=== PATIENT | female | born 1945 | race Caucasian/White ===

== ENCOUNTER 2017-09-15 11:02 | Emergency (ER) | payer MEDICARE, OTHER ==
[~2017-09-15] VITALS: Ht 157.5 cm; Wt 81.3 kg
[~2017-09-15 11:02] MED LIST: ASPI81TA81; BIOT1CAP2 PO; DICL75TA PO; ESTR0.5T PO; LEVO125T4 PO; SIMV40TA PO
[2017-09-15 11:05] VITALS: BP 169/79; PULSE 78; RESP 14; TEMP 97.8; O2SAT 98
--- NOTE | 2017-09-15 11:28 | PD ---
HPI Chief Complaint: Skin Problem Time Seen by Provider: 11:17 Travel History International Travel<30 days: No Contact w/Intl Traveler<30days: No Traveled to known affect area: No History of Present Illness HPI 71-year-old female presents to the emergency department for evaluation of cellulitis to her lower abdomen/groin that started 3 days ago. Patient states that it started out small, but has increased in size. She went saw her primary care physician yesterday who gave her an injection of Rocephin and started her on Keflex. She has been taking this since yesterday, but states symptoms are worsening. No known fevers. Patient states current pain is 5/10, worse with palpation to the area. She denies any other symptoms or complaints. Moderate severity. Patient states the area has been draining at home. PFSH Past Medical History High Cholesterol: Yes Diminished Hearing: No Thyroid Disease: Yes Tetanus Vaccination: Unknown ?: Not Social History Alcohol Use: Yes (RARE) Tobacco Use: No Substance Use: No Allergies-Medications (Allergen,Severity, Reaction): Coded Allergies: epinephrine (Unverified Allergy, Severe, 09/15/17) lidocaine (Unverified Allergy, Severe, 09/15/17) pregabalin (Unverified Allergy, Severe, 09/15/17) Reported Meds & Prescriptions Reported Meds & Active Scripts Active Reported [Keflex] Melatonin 3 mg Tablet (Melatonin/Pyridoxine HCl (B6)) 3 Mg-10 Mg Tablet Crestor (Rosuvastatin Calcium) 20 Mg Tab 20 Mg PO DAILY Levothyroxine (Levothyroxine Sodium) 125 Mcg Tab 125 Mcg PO DAILY Estradiol 0.5 Mg Tab 0.5 Mg PO DAILY Biotin 1 Mg Cap 1 Mg PO Aspir-81 (Aspirin) 81 Mg Tabdr Review of Systems Except as stated in HPI: all other systems reviewed are Neg Physical Exam Narrative GENERAL: Well-nourished, well-developed female patient, ambulatory. Afebrile peer SKIN: Focused skin assessment warm/dry. Patient has a 30 cm x 11 cm area of erythema to the lower abdomen/groin with a central area of induration, but no fluctuance or drainage at this time. HEAD: Normocephalic. Atraumatic. EYES: No scleral icterus. No injection or drainage. NECK: Supple, trachea midline. No JVD or lymphadenopathy. CARDIOVASCULAR: Regular rate and rhythm without murmurs, gallops, or rubs. RESPIRATORY: Breath sounds equal bilaterally. No accessory muscle use. Lung sounds are clear to auscultation. GASTROINTESTINAL: Abdomen soft and nondistended. MUSCULOSKELETAL: No cyanosis, or edema. BACK: No obvious deformity. Data Data Last Documented VS Vital Signs Date Time Temp Pulse Resp B/P (MAP) Pulse Ox O2 Delivery O2 Flow Rate FiO2 09/15/17 11:05 97.8 78 14 169/79 (109) 98 Orders Orders Complete Blood Count With Diff (09/15/17 11:25) Comprehensive Metabolic Panel (09/15/17 11:25) Lactic Acid Sepsis Protocol (09/15/17 11:25) Blood Culture (09/15/17 11:25) Iv Access Insert/Monitor (09/15/17 11:25) Sodium Chlor 0.9% 1000 Ml Inj (Ns 1000 M (09/15/17 11:30) Case Management Consult (09/15/17 ) Asp:No Reaction To [place]/Vanc (Asp Crit (09/15/17 12:30) Asp: Does Not Meet Inpt Admit (Asp Crit: (09/15/17 12:30) Asp: Iv Antibiotics Admit Only (Asp Crit (09/15/17 12:30) Asp: Location Of [place] Admin (Asp Crit: (09/15/17 12:30) Pharmacy Information ([facility] [place] [facility] Info (09/15/17 12:30) [facility] Inj ([facility] Inj) (09/15/17 12:22) Labs Laboratory Tests Test 09/15/17 11:45 White Blood Count 10.2 TH/MM3 Red Blood Count 4.91 MIL/MM3 Hemoglobin 14.4 GM/DL Hematocrit 43.8 % Mean Corpuscular Volume 89.1 FL Mean Corpuscular Hemoglobin 29.3 PG Mean Corpuscular Hemoglobin Concent 32.9 % Red Cell Distribution Width 12.6 % Platelet Count 235 TH/MM3 Mean Platelet Volume 9.1 FL Neutrophils (%) (Auto) 72.2 % Lymphocytes (%) (Auto) 17.1 % Monocytes (%) (Auto) 8.2 % Eosinophils (%) (Auto) 1.5 % Basophils (%) (Auto) 1.0 % Neutrophils # (Auto) 7.4 TH/MM3 Lymphocytes # (Auto) 1.7 TH/MM3 Monocytes # (Auto) 0.8 TH/MM3 Eosinophils # (Auto) 0.2 TH/MM3 Basophils # (Auto) 0.1 TH/MM3 CBC Comment DIFF FINAL Differential Comment Blood Urea Nitrogen 10 MG/DL Creatinine 0.69 MG/DL Random Glucose 107 MG/DL Total Protein 7.4 GM/DL Albumin 3.7 GM/DL Calcium Level 8.6 MG/DL Alkaline Phosphatase 46 U/L Aspartate Amino Transf (AST/SGOT) 21 U/L Alanine Aminotransferase (ALT/SGPT) 26 U/L Total Bilirubin 0.9 MG/DL Sodium Level 139 MEQ/L Potassium Level 3.7 MEQ/L Chloride Level 105 MEQ/L Carbon Dioxide Level 24.3 MEQ/L Anion Gap 10 MEQ/L Estimat Glomerular Filtration Rate 84 ML/MIN Lactic Acid Level 1.0 mmol/L MDM Medical Decision Making Medical Screen Exam Complete: Yes Emergency Medical Condition: Yes Medical Record Reviewed: Yes Differential Diagnosis Cellulitis versus abscess versus sepsis Narrative Course 71-year-old female presents to the emergency department for evaluation of infection to her lower abdomen/upper groin area for 3 days. On exam, the patient is a 30 cm x 11 cm area of erythema with a central area of induration. IV access established. CBC, CMP, lactic acid, blood cultures 2 are ordered and pending. Patient is given normal saline 1 L IV bolus. CBC shows no acute abnormality. CMP shows no acute abnormality. Lactic acid is 1.0. I discussed the case my attending physician, Dr. Lucio, who agrees with Yosvany. Delvance is ordered and given. Patient is instructed to follow up with infectious disease and her primary care physician. She verbalizes agreement. Diagnosis Primary Impression: Cellulitis of abdominal wall Referrals: Zuleika Bojorquez MD call for appointment Infectious Disease Specialist Primary Care Physician Patient Instructions: Cellulitis (ED), General Instructions Additional Instructions: You received a medication called Yosvany today. Follow up with infectious disease, Dr. Bojorquez. Follow up with your primary care physician. Return to the emergency department for any acute, worsening of symptoms. Med/Other Pt SpecificInfo: No Change to Meds Disposition: 01 DISCHARGE HOME Condition: Stable Kellee Steen MIRANDA Sep 15, 2017 11:28
[2017-09-15] MEDS ORDERED: SODIUM CHLOR 0.9% 1000 ML INJ 1,000 ML IV ONE (11:30)
[2017-09-15] MEDS ORDERED: MELA3TAB15 (11:52)
[2017-09-15] MEDS ORDERED: ROSU20 PO (11:52)
[2017-09-15 11:57] LABS: AUTOMATED NEUTROPHIL # 7.4 TH/MM3 (1.8-7.7); BASOPHIL # 0.1 TH/MM3 (0-0.2); EOSINOPHIL # 0.2 TH/MM3 (0-0.4); EOSINOPHIL % 1.5 % (0.0-4.0); HEMATOCRIT 43.8 % (35.0-46.0); HEMOGLOBIN 14.4 GM/DL (11.6-15.3); LYMPH % 17.1 % (9.0-44.0); LYMPHOCYTE # 1.7 TH/MM3 (1.0-4.8); MEAN CELL VOLUME 89.1 FL (80.0-100.0); MEAN CORPUSCULAR HEMOGLOBIN 29.3 PG (27.0-34.0); MEAN CORPUSCULAR HGB CONC 32.9 % (32.0-36.0); MEAN PLATELET VOLUME 9.1 FL (7.0-11.0); MONO % 8.2 % (0.0-8.0); MONOCYTE # 0.8 TH/MM3 (0-0.9); NEUT % 72.2 % (16.0-70.0); PLATELET COUNT 235 TH/MM3 (150-450); RED BLOOD COUNT 4.91 MIL/MM3 (4.00-5.30); RED CELL DISTRIBUTION WIDTH 12.6 % (11.6-17.2); WHITE BLOOD COUNT 10.2 TH/MM3 (4.0-11.0)
[2017-09-15] MEDS ORDERED: KEFLEX (12:06)
[2017-09-15 12:08] LABS: CHLORIDE 105 MEQ/L (98-107); SODIUM (NA) 139 MEQ/L (136-145)
[2017-09-15 12:11] LABS: ALBUMIN 3.7 GM/DL (3.4-5.0); BICARBONATE 24.3 MEQ/L (21.0-32.0); BLOOD UREA NITROGEN 10 MG/DL (7-18); CALCIUM 8.6 MG/DL (8.5-10.1); GLUCOSE,RANDOM 107 MG/DL (74-106)
[2017-09-15 12:14] LABS: ALT (GPT) 26 U/L (10-53); AST (GOT) 21 U/L (15-37); CREATININE 0.69 MG/DL (0.50-1.00); GLOMERULAR FILTRATION RATE 84 ML/MIN (>89)
[2017-09-15 12:16] LABS: TOTAL BILIRUBIN ADULT 0.9 MG/DL (0.2-1.0); TOTAL PROTEIN 7.4 GM/DL (6.4-8.2)
[2017-09-15 12:17] LABS: ALKALINE PHOSPHATASE 46 U/L (45-117)
[2017-09-15] MEDS ORDERED: DALBAVANCIN INJ 1,500 MG in DEXTROSE 5% IN WATE 500 ML INJ 500 ML IV STA ×4 (12:22→13:24)
[2017-09-15] MEDS ORDERED: ASP: Location of Dalbavancin administration OTHER ONE (12:30)
[2017-09-15] MEDS ORDERED: ASP: Does not meet inpatient admission criteria OTHER ONE (12:30)
[2017-09-15] MEDS ORDERED: PHARMACY INFORMATION XX ONE (12:30)
[2017-09-15] MEDS ORDERED: ASP: Only reason for admit - IV antibiotics OTHER ONE (12:30)
[2017-09-15] MEDS ORDERED: ASP: No known hypersensitivity to Vanco, Telavancin, Dalbavancin OTHER ONE (12:30)
[2017-09-15 14:52] VITALS: BP 142/76
== END 2017-09-15 15:00 | disposition home or self-care (01) ==
LOC: PHEFT 11:02
DX: L03.311 Cellulitis of abdominal wall (principal)
CPT/HCPCS: 80053; 83605; 85025; 87040; 96361; 96365; 99284; J0875; J7030; J7060

== ENCOUNTER 2017-12-20 07:52 | Inpatient (IN) ==
[2017-12-20] MEDS ORDERED: Sodium Chlor 0.9% Inj 250 ML ONE (08:40)
[2017-12-20] MEDS ORDERED: Chlorhexidine 4% Topical 120 APPLIC/120 ML Bottle TOPICAL SCH (08:45)
[2017-12-20] MEDS ORDERED: Sodium Chlor 0.9% Inj 40 ML, Bupivacaine Liposo PF 1.3% Inj 20 ML P-ARTICULR SCH ×2 (08:45)
[2017-12-20] MEDS ORDERED: ceFAZolin 2 GM Premix Inj 2 GM/50 ML PIGGYBACK IV.SIG SCH (09:00)
[2017-12-20] MEDS ORDERED: SODIUM CHLOR 0.9% IV.SIG SCH (09:00)
[2017-12-20] MEDS ORDERED: Chlorhexidine Gluconate 2% 1 Pack (2 Cloths) TOPICAL ONE (09:00)
[2017-12-20] MEDS ORDERED: TRANEXAMIC ACID IV.SIG SCH (09:00)
[2017-12-20] MEDS ORDERED: Sodium Chlor 0.9% Inj 500 ML IV.CONT ONE (09:00)
[2017-12-20] MEDS ORDERED: Vancomycin Inj 1,000 MG in Sodium Chlor 0.9% Inj 250 ML IV.SIG SCH (09:00)
[2017-12-20] MEDS ORDERED: Metoprolol Tartrate 25 MG Tablet PO ONE (09:00)
[2017-12-20] MEDS ORDERED: Bupivacaine/Epinephrine PF Inj 0.25% 10 ML Vial ONE (09:10)
[2017-12-20] MEDS ORDERED: HYDROmorphone PF Inj 2 MG/ML Vial ONE (09:19)
[2017-12-20] MEDS ORDERED: Temazepam 15 MG Capsule PO PRN (12:09)
[2017-12-20] MEDS ORDERED: Bisacodyl 10 MG Supp RECTAL PRN (12:09)
[2017-12-20] MEDS ORDERED: Melatonin 5 MG Tablet PO PRN (12:09)
[2017-12-20] MEDS ORDERED: Morphine Inj 4 MG/ML Vial IV.PUSH PRN (12:09)
--- NOTE | 2017-12-20 12:14 | P.OP ---
- Preoperative Diagnosis (1) Osteoarthritis of right knee - Postoperative Diagnosis (1) Osteoarthritis of right knee Date of procedure: 12/20/17 Procedure: Right total knee replacement arthroplasty Anesthesia: GETA Surgeon: Zeferino Steward MD Traveling Sales Representative: MARCUS Jones Operation and Findings: EBL: 100 cc INDICATION: This patient presents with long-standing arthritis of the knee. Attachment record documents conservative measures. The patient now presents for surgical treatment. NOTE: Kayla Jones PA-C was present for the entire surgical procedure as my data control assistant. In my medical opinion her skill and care was necessary for proper management of this patient. TOURNIQUET TIME: 54 minutes COMPANY: [employer] FEMUR: Size 5, cruciate retaining TIBIA: Size 6, fixed-bearing PATELLA: 29 mm POLYETHYLENE INSERT: 11 mm, kinematic retaining PROCEDURE: This patient was brought the operating room and anesthetized in the supine position. The patient was positioned supine on the table. The tourniquet was placed about the thigh, and the leg was scrubbed with alcohol followed by Hibiclens followed by ChloraPrep and draped sterilely. A timeout was done, and antibiotics were given. After exsanguination the tourniquet was inflated to 250 mmHg. An anterior incision was made and a median parapatellar arthrotomy was performed. The patella was released laterally and subluxed allowing freehand cut of the patella which was then sized. A metal cap was placed over the exposed patellar surface for protection. A captain/airline pilot hole was placed in the distal femur allowing a 4 valgus cut removing 10 mm from the distal femur. Anterior posterior and chamfer cuts were made. The posterior stabilize osteotomy was made. The attention was directed to the tibia. Retractors were positioned. The external alignment guide was used allowing the lateral tibia to be used as referencing guide and cut utilizing an oscillating saw taking care to avoid any injury to the surrounding soft tissues. This was sized properly. Trial reduction showed that the insert fit nicely. The patient had range of motion extension 0 flexion 130 . A medial release was not necessary. The bony surfaces prepared. On the back table 2 packets of methylmethacrylate were mixed. The components were cemented. Excess cement was removed. The tourniquet let down and hemostasis was controlled. The final plastic insert was inserted. Range of motion was the same as previously noted. A drain was brought through a separate stab incision. The arthrotomy was repaired with interrupted #1 Vicryl suture, subcutaneous tissue 2-0 Vicryl suture and skin with metallic chris A sterile dressing was applied. Sponge counts, needle counts and instrument counts were all correct. The patient tolerated procedure well and was taken to recovery in satisfactory condition. FINDINGS: There was severe osteoarthritis of the knee. The final solution appeared to be excellent. There was no complication appreciated.
[2017-12-20] MEDS ORDERED: Post-op Orders (for Pharmacy) OTHER STA (12:28)
--- NOTE | 2017-12-20 13:00 | XR ---
EXAM DATE: 12/20/2017 12:10 PM EDT AGE/SEX: 71 years / Female INDICATIONS: Post op right knee CLINICAL DATA: This is the patient's initial encounter. Patient reports that signs and symptoms have been present for 1 day and indicates a pain score of Nonresponsive. MEDICAL/SURGICAL HISTORY: Non-responsive. . right knee replaced COMPARISON: No prior exams available for comparison. FINDINGS: The patient is post right knee arthroplasty. Orthopedic hardware is in excellent position. The alignm ent is good. There is no evidence of consultation. CONCLUSION: Orthopedic hardware in excellent position. Electronically signed by: Jarrod Perla MD 12/20/2017 12:59 PM EDT
[2017-12-20] MEDS: Multivitamin/Minerals Therapeutic Tablet PO SCH (21:21)
[2017-12-20] MEDS: Senna/Docusate Sodium 8.6/50 MG Tablet PO SCH (21:21)
[2017-12-21 06:00] LABS: Hematocrit 34.3 % (35.0-46.0); Hemoglobin 12.1 gm/dL (11.6-15.3)
[2017-12-21] MEDS ORDERED: Levothyroxine 125 MCG Tablet PO SCH (06:00)
--- NOTE | 2017-12-21 07:39 | P.PNOP ---
Subjective Interval history: Doing well. Ambulating with minimal assistance. Full weightbearing. No complaints Physical Exam Vital signs: Vital Signs 12/20/17 08:37 12/20/17 08:39 12/20/17 12:22 Temperature 98.2 F Pulse Rate 78 82 Respiratory Rate 20 18 Blood Pressure 161/76 H Pulse Oximetry 99 98 12/20/17 12:30 12/20/17 12:45 12/20/17 13:00 Temperature Pulse Rate 86 83 80 Respiratory Rate 14 16 13 Blood Pressure 132/73 134/71 148/75 H Pulse Oximetry 93 L 94 L 93 L 12/20/17 13:15 12/20/17 13:32 12/20/17 14:31 Temperature 97.8 F 98.3 F Pulse Rate 82 72 Respiratory Rate 12 18 18 Blood Pressure 144/71 H 148/72 H Pulse Oximetry 94 L 96 12/20/17 16:00 12/20/17 20:00 12/21/17 00:00 Temperature 98 F 97.8 F 97.8 F Pulse Rate 61 67 73 Respiratory Rate 20 18 18 Blood Pressure 139/67 145/66 H 129/68 Pulse Oximetry 95 98 97 12/21/17 03:04 12/21/17 04:00 Temperature 97.5 F L Pulse Rate 77 Respiratory Rate 18 18 Blood Pressure 111/58 L Pulse Oximetry 98 Intake & Output 12/20/17 12/21/17 12/21/17 18:59 06:59 18:59 Intake Total 1868.19 / 1868.19 1200 / 1200 Output Total 130 / 130 Balance 1738.19 / 1738.19 1200 / 1200 Weight 81.9 kg 81.4 kg Intake: IV 528.19 / 528.19 1200 / 1200 LR 1000 mL Inj 1,000 ML @ 80 20 / 20 1000 / 1000 mls/hr IV.CONT .[id number] ZOE Rx# :[id number] Cyklokapron Inj 819 MG In NS 108.19 / 108.19 Inj 100 ML @ 200 mls/hr IV.SIG ONCE ZOE Rx#:[id number] Vancomycin Inj 1,000 MG In NS 250 / 250 Inj 250 ML @ 250 mls/hr IV.SIG PARTNER MARKETING MANAGER ZOE Rx#:[id number] Ancef 2 GM Premix Inj 2 gm In 50 / 50 50 ml @ 100 mls/hr IV.SIG PARTNER MARKETING MANAGER ZOE Rx#:[id number] Ancef Inj 1,000 MG In NS Inj 100 / 100 200 / 200 100 ML @ 200 mls/hr IV.SIG Q6H ZOE Rx#:[id number] Oral 240 / 240 Anesthesia Amount 1100 / 1100 Output: Urine 0 / 0 Estimated Blood Loss 100 / 100 Wound Drainage 30 30 Right Knee 30 Other: # Voids 3 4 Date of Last Bowel Movement 12/20/17 12/20/17 # Bowel Movements 1 Weight On Admission 81.9 kg Narrative: Dressing dry. Mild drainage. Neuro exam normal. Very little pain in the region of the knee Results - Labs CBC & Chem 7: 12/21/17 05:15 Laboratory Results - last 24 hr 12/20/17 12/21/17 08:33 05:15 Hgb 12.1 Hct 34.3 L Blood Type A Positive Antibody Screen Negative MTS Gel Crossmatch See Detail - Imaging Impressions Knee X-Ray 12/20/17 12:10 CONCLUSION: Orthopedic hardware in excellent position. Assessment and Plan - Assessment and Plan Osteoarthritis right knee. Right TKA: POD #1. PLAN: Weightbearing as tolerated. [place] for pain. Aspirin twice daily. Home with home health care/home PT. DC drain. No dressing change. Knee immobilizer at night for 4 weeks. Discharge to home
--- NOTE | 2017-12-21 07:42 | P.DCO ---
- Physical Therapy Physical Therapy: Gait training (Daily for 2 weeks) Knee: Total knee, Protocol: Right, Full weight bearing Canvas Knee Splint: Other (At night for 4 weeks) - Nursing RN: 3 days/week x 2 weeks Nursing: Other (Monitor care) Dressing changes: Do not change dressing (Unless saturated. If saturated, daily dressing change with alcohol) - Certification Need for Home Health services: I have seen patient Toya Alonzo on 12/21/17. My clinical findings support the need for the requested home health care services because: Need for Home Health Services: High risk of falls Homebound Certification: I certify that my clinical findings support that this patient is homebound because: Homebound Certification: Unsteady gait/balance
[2017-12-21] MEDS: Senna/Docusate Sodium 8.6/50 MG Tablet PO SCH (08:07)
[2017-12-21] MEDS: Multivitamin/Minerals Therapeutic Tablet PO SCH (08:07)
[2017-12-21] MEDS ORDERED: Estradiol 1 MG Tablet PO SCH (09:00)
[2017-12-21 12:20] VITALS: BP 130/63; PULSE 67; RESP 16; TEMP 97.2; O2SAT 98
== END 2017-12-21 01:50 | disposition home health service (06) ==
LOC: HSDI 07:52 → N06 13:22
PROVIDERS: ADMIT Orthopaedic Surgery Orthopaedic Surgery of the Spine; ATTEND Orthopaedic Surgery Orthopaedic Surgery of the Spine